=== PATIENT | male | born 2000 | race Caucasian/White ===

== ENCOUNTER 2022-01-30 18:47 | Emergency (ER) | payer OTHER, SELFPAY ==
--- NOTE | ~2022-01-30 | US_ITS ---
EXAMINATION: US SCROTUM CLINICAL INFORMATION: Left testicular lump/pain. COMPARISON: None TECHNIQUE: A sonogram of the scrotum was performed assessing santiago-scale appearance and color Doppler flow. Spectral Doppler analysis of the arterial and venous flow were performed in the testes bilaterally. FINDINGS: RIGHT: Right testicle measures 5.1 x 2.2 x 2.8 cm, volume 16.5 mL. No focal testicular parenchymal lesions are visualized. Spectral Doppler analysis of the arterial and venous flow is normal in the right testis. Right epididymal head is normal in size. No right hydrocele or varicocele is seen. Right epididymal Doppler flow is normal. LEFT: Left testicle measures 4.8 x 2.3 x 2.8 cm, volume 16.1 mL. No focal testicular parenchymal lesions are visualized. Spectral Doppler analysis of the arterial and venous flow is normal in the left testis. Left epididymal head is normal in size. A small cyst measuring 4 x 2 x 2 mm is noted in the head of the left epididymis. No left hydrocele or varicocele is seen. Left epididymal Doppler flow is normal. US/US scrotum doppler IMPRESSION: There is a small cyst in the head of the epididymis. No other abnormality is seen.
[2022-01-30 18:50] VITALS: BP 134/72; PULSE 73; RESP 18; TEMP 36.6; O2SAT 98; BMI 24.4
[2022-01-30 21:40] LABS: Appearance Urine CLEAR; Color Urine STRAW; Glucose Urine UA NEG (NEG); Leukocyte Esterase Urine NEG (NEG); Nitrite Urine NEG (NEG); PH 7.5 (5.0-8.0); Urine Blood NEG (NEG); Urine Ketones NEG (NEG); Urine Protein NEG (NEG-TRACE)
[2022-01-30 22:00] VITALS: BP 122/66; PULSE 70; RESP 16; TEMP 36.7; O2SAT 97
--- NOTE | 2022-01-30 22:30 | ED.MALEGU ---
HPI - Male Genitourinary General Chief complaint: Urogenital-Male Stated complaint: swollen and painful scrotal area Time Seen by Provider: 01/30/22 20:58 Source: patient Mode of arrival: ambulatory History of Present Illness HPI Narrative: 21-year-old male with no significant past medical history presenting to the ED complaining painful lump to left testicle x years. Reports area has been growing and becoming more painful over the past few months. Denies erythema, lesions, penile discharge, swelling, trauma to area, dysuria/hematuria, flank pain, abdominal pain, nausea, vomiting. Denies concern for STI MD Complaint: testicle pain Onset (ago): year(s) Duration: progressively worsening Related Data Allergies Allergy/AdvReac Type Severity Reaction Status Date / Time No Known Allergies Allergy Verified 01/30/22 21:15 Review of Systems Review of Systems: Constitutional: No Fever, No Chills, No Fatigue, No Malaise ENT/Mouth: No Ear Pain, No Nasal Congestion, No sore throat, No Swallowing Difficulty Eyes: No Eye Pain, No Swelling, No Redness Cardiovascular: No Chest Pain, No SOB, No Edema, No Palpitations Respiratory: No Cough, No Sputum, No Dyspnea Gastrointestinal: No Nausea, No Vomiting, No Diarrhea, No Constipation, No Abdominal pain Genitourinary: No irregular bleeding, No Dysuria, No Urinary Frequency, No Hematuria, +Left testicle pain and lump, No Flank Pain, No Urinary Flow Changes, No penile discharge Musculoskeletal: No joint pain, No Myalgias, No Joint Swelling Skin: No Skin Lesions, No rash Neuro: No Weakness, No Headache Yes all other systems are reviewed and are negative [facility] Past Medical History Attestation statement: The following information was validated with the patient. Social History Social History Advance Directives: No Advance Directives Information Provided: No Physical Exam Vital Signs: Vital Signs: Last Vital Signs Temp 97.9 F 01/30/22 18:50 Pulse 73 01/30/22 18:50 Resp 18 01/30/22 18:50 BP 134/72 01/30/22 18:50 Pulse Ox 98 01/30/22 18:50 O2 Del Method 01/30/22 18:50 BMI result Body Mass Index 24.4 Const: General: cooperative, healthy appearing and no acute distress Orientation/consciousness: patient oriented x3 Limitations: no limitations HEENT: Head: Yes normal to inspection and Yes atraumatic Ears: hearing grossly normal bilaterally General nose exam: Normal external nose present Face and sinus: Yes normal facial exam Eyes: General: appearance normal, both eyes and all related structures EOM: EOMs intact bilaterally Neck: Neck: Yes normal visual inspection and Yes no meningeal signs Resp: Effort & Inspection: normal respiratory effort and no respiratory distress Cardio: Rate: regular rate Heart sounds: S1 normal heart sound present and S2 normal heart sound present GI: Inspection: Yes normal to inspection Palpation (GI): Soft to palpation, nontender, no guarding and not rigid : General: Yes no CVA tenderness Penis: normal penis and circumcised Scrotum: not edematous, not erythematous, no inguinal hernias and no ulcerations Testes: epididymal mass on the left soft and tender Back/Spine/Pelvis: Back: no CVA tenderness Skin: Rashes: no rashes Wounds: no wounds Neuro: General: patient oriented x3, tone normal and no meningeal signs Gait exam (Neuro): Normal gait present Extrem: General: Yes normal to inspection Course Course Course Narrative: -UA negative US scrotum doppler IMPRESSION: There is a small cyst in the head of the epididymis. No other abnormality is seen. > results discussed with patient including needed close follow-up with Urology. Discussed worrisome signs and symptoms and strict return precautions MDM - Male Genitourinary MDM Narrative Medical decision making narrative: 21-year-old male with no significant past medical history presenting to the ED complaining painful lump to left testicle x years. On exam vital signs stable, NAD, physical exam as above with small lump noted to left testicle which is mildly tender. No erythema/function/induration. No appreciable lesions or hernia. Concern for cyst vs mass vs epididymitis/orchitis. R/o STI. Low concern for testicular torsion Plan: UA, CT NG, testicular ultrasound Differential Diagnosis Differential diagnosis: Likely urinary tract infection, epididymitis, prostatitis and inguinal hernia Medical Records Attestation: I reviewed the patient's medical records. Lab Data Attestation: I reviewed the patient's lab results. Labs: Lab Results 01/30/22 Range/Units 21:27 Urine Color STRAW Urine Appearance CLEAR Urine pH 7.5 (5.0-8.0) Ur Specific [place] 1.010 (1.005-1.025) Urine Protein NEG (NEG-TRACE) MG/DL Urine Glucose (UA) NEG (NEG) MG/DL Urine Ketones NEG (NEG) MG/DL Urine Blood NEG (NEG) Urine Nitrite NEG (NEG) Ur Leukocyte Esterase NEG (NEG) Discharge Plan Discharge Clinical Impression: Epididymal cyst Patient Disposition: Home, Self-Care Instructions: Scrotal Pain (ED) Additional Instructions: Your urine is unremarkable. Your ultrasound shows a small cyst in the head of your left epididymis Is important you to follow-up with Urology You were tested for gonorrhea and chlamydia today, the results should be back in 48 hours, will call with positive results only. Please refrain from any sexual contact until you know the results of your cultures If symptoms persist or worsen, pain becomes constant/unbearable, area begins to look infected please return to the emergency department Referrals: Ronaldo Young MD [Physician] - 1 week
[2022-01-31 02:25] LABS: CT PCR NOT DETECTED (Not Detect.); NG PCR NOT DETECTED (Not Detect.)
== END 2022-01-30 23:28 | disposition home or self-care (01) ==
PROVIDERS: Physician Assistant; Emergency Provider Internal Medicine; PCP Internal Medicine
DX: N50.3 Cyst of epididymis (principal); N50.812 Left testicular pain; N50.89 Other specified disorders of the male genital organs; R10.2 Pelvic and perineal pain; Z79.899 Other long term (current) drug therapy
CPT/HCPCS: 81003; 87491; 87591; 93975; 99284